=== PATIENT | female | born 1995 | race Caucasian/White ===

== ENCOUNTER 2017-07-04 11:05 | Emergency (ER) | payer MEDICAID ==
[~2017-07-04] VITALS: Ht 165.1 cm; Wt 68.2 kg
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
[2017-07-04 11:17] VITALS: Ht 165.1 cm; Wt 68.2 kg
== END 2017-07-04 11:20 | disposition home or self-care (01) ==
LOC: E/R 11:05
DX: O9A.212 Injury, poisoning and certain other consequences of external causes complicating pregnancy, second trimester (principal); S39.91XA Unspecified injury of abdomen, initial encounter; V49.40XA Driver injured in collision with unspecified motor vehicles in traffic accident, initial encounter; Z3A.00 Weeks of gestation of pregnancy not specified
CPT/HCPCS: 99282

== ENCOUNTER 2017-07-04 12:02 | Outpatient (CLI) | payer MEDICAID ==
[~2017-07-04] VITALS: Ht 160 cm; Wt 72.0 kg
[2017-07-04 12:21] VITALS: BP 102/64; PULSE 80; RESP 18; Ht 160 cm; Wt 72.0 kg
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
--- NOTE | 2017-07-04 15:17 | RADRPT ---
PROCEDURE: US OB. CLINICAL INDICATION: Size and dates TECHNIQUE: Multiple sonographic images of the pelvis and gravid uterus were obtained. The images were reviewed on a PACS workstation. COMPARISON: 07/04/2017 FINDINGS: There is a single viable intrauterine gestation. Cardiac activity is present with 115 beats per min [place]. There is a vertex presentation. The placenta is anterior. There is no evidence for an abruption or placenta previa. MVP = 4.3 cm. Measurements were made in order to determine age. The results are as follows: BPD =4.4 cm HC =16.9 cm AC =13.8 cm FL =3.1 cm Estimated gestational age of approximately 19 weeks and 3 days based on ultrasound measurements. The estimated date of delivery is 11/25/2017, based on ultrasound measurements. The EFW = 286 g RPTAT: AA IMPRESSION: Single viable intrauterine gestation of approximately 19 weeks and 3 days based on ultrasound measu rements. .Lorenzo Billy MD, MD Date Time Electronically viewed and signed by .Lorenzo Billy MD, on 07/04/2017 15:17 .S/
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
== END 2017-07-04 16:00 | disposition home or self-care (01) ==
LOC: OBT 12:02 → L-D 12:09 → OBT 16:00
PROVIDERS: ATTEND Obstetrics & Gynecology
DX: O9A.212 Injury, poisoning and certain other consequences of external causes complicating pregnancy, second trimester (principal); Z3A.19 19 weeks gestation of pregnancy; V43.52XA Car driver injured in collision with other type car in traffic accident, initial encounter; Y92.410 Unspecified street and highway as the place of occurrence of the external cause
CPT/HCPCS: 76805; 76815; Z7500; G0463

== ENCOUNTER 2017-11-08 08:43 | Inpatient (IN) | payer MEDICAID ==
[~2017-11-08] VITALS: Ht 160 cm; Wt 86.0 kg
[2017-11-08 08:48] VITALS: Ht 160 cm; Wt 86.0 kg
--- NOTE | 2017-11-08 09:23 | TRIAGE ---
OB Triage Datetime Report Generated by CPN: 11/08/2017 09:22 Datetime: 11/08/2017 09:16 Maternal Assessment Level of Consciousness: Fully Conscious DTR's/Clonus: DTRs 1+ Headache: Denies Blurred Vision: No Respiratory Effort: Unlabored Breath Sounds, Left: Clear and Equal Breath Sounds, Right: Clear and Equal Nausea/Vomiting: Denies RUQ Epigastric Pain: Denies Facial Edema: None Labor Evaluation Frequency: OCC Monitor Mode: External Duration (sec)2399: 40 Resting Tone [place]: Relaxed Heart Rate FHR Baseline Rate: 140 Monitor Mode: External US Variability: Moderate 6-25 bpm Accelerations: 15X15 Decelerations: None Category: Category I Pain Assessment Pain Scale: 5 Pain Presence: Intermittent Pain Type: Contraction Pain Location: Back Pain Goal: 3 Pain Relief Measures: Pain Medication Given Membrane Status: Ruptured Datetime: 11/08/2017 09:03 Stage of : OB Triage Datetime: 11/08/2017 08:54 Vaginal Exam Dilatation (cms): 1.0 Effacement (%): 50 Station: -3 Exam By: ESTRELLA MCCARTNEY Vaginal Bleeding: None Cervix, Consistency: Soft Cervix, Position: Posterior Presentation 'A': Cephalic Datetime: 11/08/2017 08:46 Assessment Type: Triage EGA: 37.6 Maternal Assessment Level of Consciousness: Fully Conscious DTR's/Clonus: DTRs 2+; No Clonus Headache: Denies Blurred Vision: No Respiratory Effort: Unlabored; Regular Rhythm; Equal Expansion Breath Sounds, Left: Clear and Equal Breath Sounds, Right: Clear and Equal Nausea/Vomiting: Denies RUQ Epigastric Pain: Denies Lower Extremities Edema: None Degree: None Upper Extremities Edema: None Degree: None Facial Edema: None Fall Risk Assessment History of Falling: (0) No Secondary Diagnosis: (0) No Ambulatory Aid: (0) Bedrest/Nurse Assist IV Therapy: (0) No Gait: (0) Normal/Bedrest/Immobile Mental Status: (0) Oriented to Own Ability Fall Score: 0 Fall Risk Score Definition: No Risk: No action required Datetime: 11/08/2017 08:40 Time of Arrival: 11/08/2017 08:40 Arrived By: Ambulatory Arrived From: Home Chief Complaint: PT CAME IN C/O LEAKING FLUID SINCE 0300 THIS MORNING Movement: Present Contractions: Denies/Absent Rupture of Membranes: Denies Vaginal Discharge: Denies Recent Sexual Intercouse: Denies Abdominal Trauma: Not Applicable Additional Patient Complaints: NONE Time Provider Notified: 11/08/2017 09:03 Provider Notified: FITO/EVON Initial Plan: MONITOR,. ROM PLUS AND VE
--- NOTE | 2017-11-08 10:02 | RADRPT ---
PROCEDURE: OB ultrasound limited for biophysical profile . CLINICAL INDICATION: Spontaneous rupture of membranes TECHNIQUE: Multiple sonographic images of the pelvis were obtained. Transabdominal view of the gr avid uterus are available for review. The images were reviewed on a PACS workstation. COMPARISON: 07/04/2017 FINDINGS: breathing movement = 2/2 tone = 2/2 motion = 2/2 Amniotic fluid volume = 0/2 OTTONIEL = 2.3 cm consistent with oligohydramnios. Cephalic presentation. Heart rate 122 beats per minute. Anterior grade II placenta. IMPRESSION: 1. Single viable intrauterine gestation. 2. Biophysical profile = 8 3. OTTONIEL = 2.3 cm consistent with oligohydramnios.. RPTAT: QQ .Yvan Paulino MD, Date Time Electronically viewed and signed by .Yvan Paulino MD, on 11/08/2017 10:01 .Monster/
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
[2017-11-08] MEDS ORDERED: BUTORPHANOL 2 MG INJ IV PRN (11:30)
[2017-11-08] MEDS ORDERED: OXYTOCIN 30 UNITS/LR 500 ML IV SCH ×3 (11:30→12:00)
[2017-11-08] MEDS ORDERED: LIDOCAINE 1% (MPF) 30 ML INJ INJ PRN (11:30)
[2017-11-08] MEDS ORDERED: MISOPROSTOL 200 MCG TAB PR PRN (11:30)
[2017-11-08] MEDS ORDERED: CARBOPROST 250 MCG INJ IM PRN (11:30)
[2017-11-08] MEDS ORDERED: AMPICILLIN 2 GM/NS (PMX) 100 ML IV ONE (11:30)
[2017-11-08] MEDS ORDERED: OXYTOCIN 30 UNITS/LR 500 ML IV PRN (11:30)
[2017-11-08] MEDS ORDERED: METHYLERGONOVINE 0.2 MG INJ IM PRN (11:30)
[2017-11-08] MEDS ORDERED: AMPICILLIN 2 GM/NS (PMX) 100 ML ONE (11:31)
[2017-11-08 12:09] LABS: BASOPHILS % 0.4 % (0.0-2.0); EOSINOPHILS % 9.2 % (0.0-7.0); HEMATOCRIT 33.5 % (37.0-47.0); HEMOGLOBIN 10.8 g/dl (12.0-16.0); LYMPHOCYTES # 2.3 10^3/ul (0.8-2.9); LYMPHOCYTES % 21.4 % (18.0-55.0); MEAN CORPUSCULAR HEMOGLOBIN 24.3 pg (29.0-33.0); MEAN CORPUSCULAR HGB CONC 32.2 g/dl (32.0-37.0); MEAN CORPUSCULAR VOLUME 75.5 fl (72.0-104.0); MEAN PLATELET VOLUME 10.1 fl (7.4-10.4); MONOCYTE # 0.7 10^3/ul (0.3-0.9); MONOCYTES % 6.9 % (0.0-13.0); NEUTROPHIL # 6.5 10^3/ul (1.6-7.5); NEUTROPHILS % 61.1 % (30.0-74.0); PLATELET COUNT 284 10^3/UL (140-415); RED BLOOD COUNT 4.44 10^6/ul (4.20-5.40); RED CELL DISTRIBUTION WIDTH 14.3 % (11.5-14.5); WHITE BLOOD COUNT 10.6 10^3/ul (4.8-10.8)
[2017-11-08 12:20] LABS: INR 0.9; PROTIME 12.2 Sec (11.9-14.9)
[2017-11-08 12:21] LABS: PARTIAL THROMBOPLASTIN TIME 28.6 Sec (25.0-35.0)
--- NOTE | 2017-11-08 12:38 | CONS ---
Date/Time of Note Date/Time of Note DATE: 11/08/17 TIME: 12:22 Consultation Date/Type/Reason Admit Date/Time Nov 08, 2017 at 09:03 OB triage consult This patient is a 22 years old 1 para 0, estimated date of confinement of November 23, 2017 ,which makes her 37 weeks and 6 days now. She came to triage complaining of leakage of fluid vaginally. On examination, there was gross evidence of a rupture of membrane. Nitrazine test was positive ,pooling was noted . ROM plus done which came back positive. Patient was sent for estimated weight as well as biophysical profile,. She was admitted in the labor and delivery room for possible delivery. On reviewing her past history, she did not have any other major medical problems or surgical procedures. On examination she is a well-developed well-nourished somewhat overweight patient. Her ear nose throat appears to be normal . neck is normal no neck vein distention no thyromegaly Her abdomen is soft heart tone is normal The tracing is reactive with fairly good variability and occasional acceleration no decelerations. Her general vital signs are within normal limits, with blood pressure of 112/71 , pulse rate of 80, respiration 19, temperature 98.3,,. On pelvic examination ; the cervix was 1 cm, 50% effaced, -3 station and clear evidence of rupture membrane. Reason for Consultation Laboratory Tests Test 11/08/17 09:00 11/08/17 10:00 Membranes Rupture POSITIVE White Blood Count 10.610^3/ul Red Blood Count 4.4410^6/ul Hemoglobin 10.8g/dl Hematocrit 33.5% Mean Corpuscular Volume 75.5fl Mean Corpuscular Hemoglobin 24.3pg Mean Corpuscular Hemoglobin Concent 32.2g/dl Red Cell Distribution Width 14.3% Platelet Count 82739^3/UL Mean Platelet Volume 10.1fl Neutrophils % 61.1% Lymphocytes % 21.4% Monocytes % 6.9% Eosinophils % 9.2% Basophils % 0.4% Nucleated Red Blood Cells % 0.0/100WBC Neutrophils # 6.510^3/ul Lymphocytes # 2.310^3/ul Monocytes # 0.710^3/ul Eosinophils # 1.010^3/ul Basophils # 0.010^3/ul Nucleated Red Blood Cells # 0.010^3/ul Prothrombin Time 12.2Sec Prothrombin Time Ratio 1.0 INR International Normalized Ratio 0.90 Activated Partial Thromboplast Time 28.6Sec Current Medications Medications (Trade) Dose Ordered Sig/Jessie Route PRN Reason Start Time Stop Time Status Last Admin Dose Admin Lactated Ringer's 1,000 ml @ 125 mls/hr Q8H IV 11/08/17 11:30 Ampicillin 100 ml @ 100 mls/hr ONCE ONCE IV 11/08/17 11:30 11/08/17 12:29 Ampicillin (Ampicillin 1 Gm/ NS (Pmx)) 50 ml @ 100 mls/hr Q4H IV 11/08/17 13:30 Butorphanol Tartrate (Stadol) 2 mg Q2H PRN IV PAIN 11/08/17 11:30 Lidocaine 30 ml 30 ml ONCE PRN INJ EPISIOTOMY/TEARING 11/08/17 11:30 Oxytocin/Lactated Ringer's 500 ml @ 500 mls/hr ONCE POST IV 11/08/17 11:30 Oxytocin/Lactated Ringer's 500 ml @ 125 mls/hr POST IV 11/08/17 11:30 Oxytocin/Lactated Ringer's 500 ml @ 0 mls/hr ONCE PRN IV For Hemorrhage Management 11/08/17 11:30 Methylergonovine Maleate (Methergine) 0.2 mg ONCE PRN IM VAGINAL BLEEDING 11/08/17 11:30 Carboprost Tromethamine (Hemabate) 250 mcg ONCE PRN IM VAGINAL BLEEDING 11/08/17 11:30 Misoprostol 1000 mcg 1,000 mcg ONCE PRN MI VAGINAL BLEEDING 11/08/17 11:30 Ampicillin 100 ml @ ud STK-MED ONCE .ROUTE 11/08/17 11:31 11/08/17 11:32 DC Oxytocin/Lactated Ringer's 500 ml @ 0 mls/hr Q0M IV 11/08/17 12:00 Constitutional: No chills, No diaphoresis, No disoriented, No febrile, No improved, No no complaints, No other, No poor po, No requiring IVF, No requiring O2 Eyes: No discharge, No no complaints, No other, No pain, No redness, No visual change ENT: No bleeding, No congestion, No discharge, No dysphagia, No no complaints, No other, No pain, No sore throat Respiratory: No cough, No no complaints, No other, No pain, No pleuritic pain, No shortness of breath, No sputum, No wheezing Cardiovascular: No chest pain, No edema, No lightheadedness, No no complaints, No orthopenea, No other, No palpitations, No paroxysmal nocturnal dyspnea Gastrointestinal: No blood, No constipation, No decreased appetite, No diarrhea , No flatus, No nausea, No no complaints, No other, No pain, No passing stool, No vomiting Genitourinary: other (On pelvic examination as I mentioned the cervix was about 1 fingertip 50% and -2 station with ruptured membranes), No bleeding, No discharge, No dysuria, No flank pain, No hematuria, No no complaints Skin: No bruising, No erythema, No laceration, No no complaints, No other, No pruritis, No rash, No skin lesions Neurologic: No confusion, No dizziness, No focal-weakness, No headache, No no complaints, No other, No seizure, No syncope Endocrine: No dry skin, No no complaints, No other, No polydypsia, No polyuria , No temp intolerance Additional Comments . .As I mentioned her ROM plus was positive on ultrasound study, estimated weight was 2731 g, which coincided 35 and half weeks . the biophysical profile was 6/8 with amniotic fluid index of 2.[address] Lopez was notified of the condition the patient and she was admitted in the labor and delivery. Social History Smoking Status: Never smoker Exam/Review of Systems Vital Signs Vitals Vital Signs Date Time Temp Pulse Resp B/P Pulse Ox O2 Delivery O2 Flow Rate FiO2 11/08/17 08:49 98.6 99 Room Air Results Result Diagram: 11/08/17 1000 Results 24 hrs Laboratory Tests Test 11/08/17 09:00 11/08/17 10:00 Membranes Rupture POSITIVE H White Blood Count 10.6 Red Blood Count 4.44 Hemoglobin 10.8 L Hematocrit 33.5 L Mean Corpuscular Volume 75.5 Mean Corpuscular Hemoglobin 24.3 L Mean Corpuscular Hemoglobin Concent 32.2 Red Cell Distribution Width 14.3 Platelet Count 284 Mean Platelet Volume 10.1 Neutrophils % 61.1 Lymphocytes % 21.4 Monocytes % 6.9 Eosinophils % 9.2 H Basophils % 0.4 Nucleated Red Blood Cells % 0.0 Neutrophils # 6.5 Lymphocytes # 2.3 Monocytes # 0.7 Eosinophils # 1.0 H Basophils # 0.0 Nucleated Red Blood Cells # 0.0 Prothrombin Time 12.2 Prothrombin Time Ratio 1.0 INR International Normalized Ratio 0.90 Activated Partial Thromboplast Time 28.6 Medications Medications Current Medications Lactated Ringer's 1,000 ml @ 125 mls/hr Q8H IV ; Start 11/08/17 at 11:30 Ampicillin 100 ml @ 100 mls/hr ONCE ONCE IV ; Start 11/08/17 at 11:30; Stop 11/08/17 at 12:29 Ampicillin (Ampicillin 1 Gm/ NS (Pmx)) 50 ml @ 100 mls/hr Q4H IV ; Start 11/08 at 13:30 Butorphanol Tartrate (Stadol) 2 mg Q2H PRN IV PAIN; Start 11/08/17 at 11:30 Lidocaine 30 ml 30 ml ONCE PRN INJ EPISIOTOMY/TEARING; Start 11/08/17 at 11:30 Oxytocin/Lactated Ringer's 500 ml @ 0 mls/hr ONCE PRN IV For Hemorrhage Management; Start 11/08/17 at 11:30 Methylergonovine Maleate (Methergine) 0.2 mg ONCE PRN IM VAGINAL BLEEDING; Start 11/08/17 at 11:30 Carboprost Tromethamine (Hemabate) 250 mcg ONCE PRN IM VAGINAL BLEEDING; Start 11/08/17 at 11:30 Misoprostol 1000 mcg 1,000 mcg ONCE PRN MI VAGINAL BLEEDING; Start 11/08/17 at 11:30 Oxytocin/Lactated Ringer's 500 ml @ 0 mls/hr Q0M IV ; Start 11/08/17 at 12:00 MESFIN BARNARD MD Nov 08, 2017 12:38
[2017-11-08] MEDS: LACTATED RINGER'S 1,000 ML IV SCH ×3 (13:15→21:11)
--- NOTE | 2017-11-08 13:54 | HP ---
Date/Time of Note Date/Time of Note DATE: 11/08/17 TIME: 13:49 OB - History Hx of Present Free Text/Dictation Admitted at 37 weeks and 6 days with complaint of spontaneous rupture of membrane at 3:30 AM Estimated Due Date: Nov 23, 2017 : 1 Para: 0 Care: Limited Care Ultrasounds: Other (Not available) Obstetrical Complications: None Medical Complications: None Past Family/Social History * Past Medical, Surgical, Family and Obstetric Histories reviewed from chart. Blood Type: B+ Rubella: unknown RPR/VDRL: Unknown GBS Status: Unknown HBsAG: Negative OB Admission Exam Vital Signs Vital Signs Vital Signs Date Time Temp Pulse Resp B/P Pulse Ox O2 Delivery O2 Flow Rate FiO2 11/08/17 08:49 98.6 99 Room Air Physical Exam HEENT: WNL Heart: Rhythm Normal Lungs: Clear, Equal Abdomen: WNL Extremities: Normal Reflexes: Normal Cervical Dilatation: 1cm Effacement: 50% Station: -2 Membranes: Ruptured Amniotic Fluid: Clear Heart Rate: 140's Accelerations: Accelerations Present Decelerations: No Decelerations Varibility: Moderate Contractions on Admission: >10 Minutes Apart Date/Time Contractions Began: November 08, 2017, at 3:30 AM Frequency of Contractions: Infrequent Duration: Unknown Intensity: Mild Last 72 hours Lab Results CBC & BMP 11/08/17 10:00 OB Assessment/Plan Other Assessment: Spontaneous rupture of membrane at 37 weeks and 6 days by dates Ultrasound does not confirm gestational age Specific test for amniotic membrane ruptured is positive Report of ultrasound is as follows: Single viable intrauterine gestation of approximately 35 weeks 1 day. The estimated date of delivery is 12/12/2017. The estimated weight is 2731 g plus/minus 409 g. Marked oligohydramnios. The amniotic fluid index is 2.3 cm. Other plan: Maintenance for labor augmentation CARLOS ALBERTO LUJAN MD Nov 08, 2017 13:54
[2017-11-08] MEDS: AMPICILLIN 1 GM/NS (PMX) 50 ML IV SCH ×3 (14:35→21:45)
[2017-11-08] MEDS ORDERED: FENTAnyl 2MCG/ML-ROPIV 0.2% 100 ML ONE (17:07)
[2017-11-08] MEDS ORDERED: FENTAnyl 2MCG/ML-ROPIV 0.2% 100 ML BAG EPI SCH (18:00)
[2017-11-08] MEDS ORDERED: ONDANSETRON 4 MG INJ IV PRN (18:00)
[2017-11-08] MEDS ORDERED: DIPHENHYDRAMINE 50 MG INJ IV PRN (18:00)
[2017-11-08] MEDS ORDERED: NALOXONE (0.4 MG/ML) INJ IV PRN (18:00)
[2017-11-08 19:04] LABS: BARBITURATES Negative (NEGATIVE); BENZODIAZEPINES Negative (NEGATIVE); CANNABINOIDS Negative (NEGATIVE); COCAINE Negative (NEGATIVE); OPIATES Negative (NEGATIVE)
[2017-11-08] MEDS ORDERED: ACETAMINOPHEN 325 MG TAB ONE (21:29)
[2017-11-08] MEDS ORDERED: ACETAMINOPHEN 650 MG SUPP PR ONE (21:29)
[2017-11-08] MEDS ORDERED: ACETAMINOPHEN 325 MG TAB PO PRN (21:30)
[2017-11-09] MEDS: AMPICILLIN 1 GM/NS (PMX) 50 ML IV SCH (02:08)
[2017-11-09] MEDS ORDERED: OXYTOCIN 30 UNITS/LR 500 ML IV SCH (05:47)
[2017-11-09] MEDS ORDERED: LACTATED RINGER'S 1,000 ML IV* SCH (05:47)
--- NOTE | 2017-11-09 05:51 | LDN ---
Date/Time of Note Date/Time of Note DATE: 11/09/17 TIME: 05:49 Delivery Summary of a viable baby girl weighing 2515 grams, or 5# 9 oz, 18" long, and with Apgars of 9/9. Weeks of Gestation 38w Placenta Delivered: Spontaneously Meconium: none Episiotomy: No Perineal laceration: 0 Laceration repair: B/l labial lacerations only with the left> right. Anesthesia type: None (150) Sponge & Needle done & correct: Yes All needle counts correct: Yes Any foreign bodies felt in the: No (vagina) Problems: Infant Delivery Information Sex Infant Sex: female Apgars 1 Minute: 9 5 Minute: 9 Suctioning Nose & mouth suctioned at [place]: Yes Delee suction performed: No Umbilical Cord Umbilical cord with: 3 Vessels Cord presentations: no nuchal cord Cord Blood was obtained: Yes Mother & Baby Disposition Disposition Mom & Baby to Maternity; Good: Yes Baby to NICU: No KEILY TENORIO MD Nov 09, 2017 05:51
[2017-11-09] MEDS ORDERED: OXYTOCIN 30 UNITS/LR 500 ML IV PRN (06:00)
[2017-11-09] MEDS ORDERED: CARBOPROST 250 MCG INJ IM PRN (06:00)
[2017-11-09] MEDS ORDERED: METHYLERGONOVINE 0.2 MG INJ IM PRN (06:00)
[2017-11-09] MEDS ORDERED: MISOPROSTOL 200 MCG TAB PR PRN (06:00)
[2017-11-09] MEDS ORDERED: LANOLIN 7 GM TUBE TOP PRN (06:00)
[2017-11-09] MEDS ORDERED: BENZOCAINE 20% 56 ML SPRAY TOP PRN (06:00)
[2017-11-09] MEDS ORDERED: HYDROCODONE/APAP (5/325) TAB PO PRN (06:00)
[2017-11-09 08:45] VITALS: BP 119/83; PULSE 82; RESP 18
[2017-11-09] MEDS: IBUPROFEN 600 MG TAB PO SCH ×3 (09:02→17:29)
[2017-11-09 09:45] VITALS: BP 119/57; PULSE 92; RESP 16
[2017-11-09 12:30] VITALS: BP 109/56; PULSE 80; RESP 16
[2017-11-09 16:00] VITALS: BP 115/73; PULSE 92; RESP 17
[2017-11-09 19:40] VITALS: BP 96/55; PULSE 88; RESP 18
[2017-11-10 00:15] VITALS: BP 98/61; PULSE 72; RESP 18
[2017-11-10] MEDS: IBUPROFEN 600 MG TAB PO SCH ×4 (00:17→17:30)
[2017-11-10 08:20] VITALS: BP 106/55; PULSE 85; RESP 20
[2017-11-10 10:29] LABS: BASOPHILS % 0.1 % (0.0-2.0); EOSINOPHILS # 0.7 10^3/ul (0.0-0.5); EOSINOPHILS % 5.1 % (0.0-7.0); HEMATOCRIT 29.8 % (37.0-47.0); HEMOGLOBIN 9.4 g/dl (12.0-16.0); LYMPHOCYTES # 2.8 10^3/ul (0.8-2.9); LYMPHOCYTES % 21.1 % (18.0-55.0); MEAN CORPUSCULAR HEMOGLOBIN 24.5 pg (29.0-33.0); MEAN CORPUSCULAR HGB CONC 31.5 g/dl (32.0-37.0); MEAN CORPUSCULAR VOLUME 77.6 fl (72.0-104.0); MEAN PLATELET VOLUME 10.4 fl (7.4-10.4); MONOCYTE # 0.7 10^3/ul (0.3-0.9); MONOCYTES % 5.1 % (0.0-13.0); NEUTROPHILS % 67.3 % (30.0-74.0); PLATELET COUNT 240 10^3/UL (140-415); RED BLOOD COUNT 3.84 10^6/ul (4.20-5.40); RED CELL DISTRIBUTION WIDTH 14.6 % (11.5-14.5); WHITE BLOOD COUNT 13.4 10^3/ul (4.8-10.8)
[2017-11-10 16:00] VITALS: BP 100/59; RESP 18
--- NOTE | 2017-11-10 18:49 | DS ---
Date/Time of Note Date/Time of Note Home next day DATE: 11/10/17 TIME: 18:48 Obstetrical Discharge Record Final Diagnosis Final Diagnosis: Term delivered Other Final Diagnosis Status post vaginal delivery Vaginal Delivery Obstetrical Delivery: Spontaneous, Laceration, Repaired Complications Augmentation: Yes Condition on Discharge Physical Assessment Last Vitals: See nurse's notes Voiding: Yes Bowel Movement: Yes Breast: Soft, non-tender, Filling Fundus: Firm Abdomen and Incision: Abdomen is soft and not distended bowel sounds present Fundus is firm at the U Episiotomy: Not applicable Calf Tenderness: No Patient Condition: Good CARLOS ALBERTO LUJAN MD Nov 10, 2017 18:49
--- NOTE | 2017-11-10 18:49 | PD.PPDC ---
[employer]E [employer] Discharge Instruction Provider Information Physician Information 22-year-old female had vaginal delivery at 37+ weeks Diagnosis Final Diagnosis: Status post vaginal delivery Condition Patient Condition: Good Diet Diet: Resume Regular Diet Activity/Restrictions Activity: Normal Activity May Shower Restrictions: Nothing in the Vagina Return to Work or School: Dec 28, 2017 Follow-up Follow-up with Physician: 4, Week/Weeks (In clinic) Return to clinic for OB Instructions: Breast Tenderness Depression Comment: Pelvic rest for 6 weeks CARLOS ALBERTO LUJAN MD Nov 10, 2017 18:49
[2017-11-10] MEDS ORDERED: IBUP-1542 PO (18:50)
[2017-11-10 20:05] VITALS: BP 107/76; PULSE 94; RESP 18
[2017-11-11] MEDS: IBUPROFEN 600 MG TAB PO SCH ×3 (00:09→12:19)
[2017-11-11 04:15] VITALS: BP 119/69; PULSE 88; RESP 18
[2017-11-11 07:50] VITALS: BP 108/59; PULSE 89; RESP 19
[2017-11-11] MEDS ORDERED: DIPHTH/TET/ACEL PERTUSS (ADULT) 0.5 ML VIAL IM* ONE (09:00)
== END 2017-11-11 15:17 | disposition home or self-care (01) | DRG 775 ==
LOC: OBT 08:43 → L-D 08:44 → OBT 09:14 → PP1 11-09 08:31
PROVIDERS: ADMIT Obstetrics & Gynecology; ATTEND Obstetrics & Gynecology
PROC: 4A1HXCZ Monitoring of Products of Conception, Cardiac Rate, External Approach (ICD-10-PCS; 2017-11-08)
PROC: 10E0XZZ Delivery of Products of Conception, External Approach (ICD-10-PCS; principal; 2017-11-09)
PROC: 0UQMXZZ Repair Vulva, External Approach (ICD-10-PCS; 2017-11-09)
DX: O41.03X0 Oligohydramnios, third trimester, not applicable or unspecified (principal); O70.0 First degree perineal laceration during delivery; Z37.0 Single live birth; Z3A.38 38 weeks gestation of pregnancy
CPT/HCPCS: 62319; 76815; 76818; 80307; 84112; 85025; 85610; 85730; 86592; 86900; 86901; 87340; 90715; 99464; G0463; J0290; J2405; J2590; J3010; J7120

== ENCOUNTER 2018-02-14 18:05 | Emergency (ER) | END 2018-02-14 21:40 | disposition home or self-care (01) ==

== ENCOUNTER 2018-06-17 09:14 | Inpatient (IN) | END 2018-06-19 17:24 | disposition home or self-care (01) | DRG 419 ==

== ENCOUNTER 2019-02-19 20:38 | Emergency (ER) | payer SELFPAY ==
[~2019-02-19] VITALS: Ht 160 cm; Wt 72.2 kg
[~2019-02-19 20:38] MED LIST: DOCU-144 PO; HYDR-3601 PO
[2019-02-19 20:44] VITALS: Ht 160 cm; Wt 72.2 kg
[2019-02-20] MEDS ORDERED: ONDANSETRON (ODT) 4 MG TAB ODT STA (00:43)
[2019-02-20] MEDS ORDERED: FAMOTIDINE 20 MG TAB PO ONE (01:00)
[2019-02-20] MEDS ORDERED: LIDOCAINE/MYLANTA 40 ML BTL PO ONE (01:00)
[2019-02-20] MEDS ORDERED: KETOROLAC 30 MG INJ IM STA (02:57)
[2019-02-20] MEDS ORDERED: IBUP-1542 PO (02:59)
[2019-02-20] MEDS ORDERED: TRAM50TA2 PO (02:59)
[2019-02-20] MEDS ORDERED: traMADol 50 MG TAB PO ONE (03:00)
[2019-02-20 03:13] VITALS: BP 113/71; PULSE 60; RESP 18
--- NOTE | 2019-02-20 20:57 | ERD ---
ER Documentation Chief Complaint Chief Complaint Epigastric pain, N/V X 3 days HPI History of Present Illness: Patient coming in with today of epigastric pain and nausea for 3 days. Patient denies vomiting, severe abdominal pain, diarrhea, fever, chills, decreased appetite. Past medical history includes jonathan. At home pharmacological/nonpharmacological treatment for symptoms: denies Denies social concerns; Denies recent foreign travel ROS All systems reviewed and are negative except as per history of present illness. Medications Home Meds Active Scripts Tramadol HCl (Tramadol HCl) 50 Mg Tablet, 50 MG PO Q8 PRN for PAIN, #8 TAB Prov:ELSY HALEY V [employer] 02/20/19 Ibuprofen* (Motrin*) 600 Mg Tab, 600 MG PO Q6H PRN for PAIN, #30 TAB Prov:ELSY HALEY V [employer] 02/20/19 Docusate Sodium* (Colace*) 100 Mg Capsule, 100 MG PO BID, #20 CAP Prov:KENIA BOYLE [employer] 06/19/18 Hydrocodone Bit-Acetaminophen (Hydrocodone Bit-APAP) 5-325MG Tablet, 1 TAB PO Q6H PRN for MODERATE PAIN LEVEL 4-6, #14 TAB Prov:KENIA BOYLE [employer] 06/19/18 Allergies Allergies: Coded Allergies: No Known Allergy (Unverified , 06/17/18) PMhx/Soc History of Surgery: Yes Anesthesia Reaction: No Hx Neurological Disorder: No Hx Respiratory Disorders: No Hx Cardiac Disorders: No Hx Psychiatric Problems: No Hx Miscellaneous Medical Probl: No Hx Alcohol Use: No Hx Substance Use: No Hx Tobacco Use: No FmHx Family History: No diabetes, No coronary disease Physical Exam Vitals Vital Signs Date Temp Pulse Resp B/P (MAP) Pulse Ox O2 O2 Flow FiO2 Time Delivery Rate 02/20/19 98.4 60 18 113/71 99 Room Air 03:13 (85) 02/19/19 97.3 72 18 114/76 98 20:44 (89) Physical Exam Const: No acute distress, no grimacing Head: Atraumatic Eyes: Normal Conjunctiva ENT: Normal External Ears, Nose and Mouth. Neck: Full range of motion. No meningismus. Resp: Clear to auscultation bilaterally Cardio: Regular rate and rhythm, no murmurs Abd: Soft, non tender, non distended. Normal bowel sounds Skin: No petechiae or rashes Back: No midline or flank tenderness Ext: No cyanosis, or edema Neur: Awake and alert Psych: Normal Mood and Affect Results 24 hrs Laboratory Tests Test 02/20/19 00:55 02/20/19 00:56 Urine Color YELLOW Urine Clarity SLIGHTLY CLOUDY Urine pH 5.0 Urine Specific [place] 1.027 Urine Ketones TRACE mg/dL Urine Nitrite NEGATIVE mg/dL Urine Bilirubin NEGATIVE mg/dL Urine Urobilinogen NEGATIVE mg/dL Urine Leukocyte Esterase NEGATIVE Luis/ul Urine Microscopic RBC 2 /HPF Urine Microscopic WBC 5 /HPF Urine Squamous Epithelial Cells FEW /HPF Urine Mucus FEW /HPF Urine Hemoglobin NEGATIVE mg/dL Urine Glucose NEGATIVE mg/dL Urine Total Protein NEGATIVE mg/dl POC Beta HCG, Qualitative NEGATIVE Current Medications Medications Dose Sig/Jessie Start Time Status Last (Trade) Ordered Route PRN Stop Time Admin Dose Reason Admin 40 ml ONCE ONCE 02/20/19 DC 02/20/19 Miscellaneous PO 01:00 01:04 Medication 02/20/19 01:01 (Gi Cocktail (2)) Ondansetron 4 mg ONCE STAT 02/20/19 DC 02/20/19 HCl (Zofran ODT 00:43 01:01 Odt) 02/20/19 00:45 Famotidine 20 mg ONCE ONCE 02/20/19 DC 02/20/19 (Pepcid) PO 01:00 01:04 02/20/19 01:01 Tramadol 50 mg ONCE ONCE 02/20/19 DC 02/20/19 HCl PO 03:00 03:10 (Ultram) 02/20/19 03:01 Ketorolac 30 mg ONCE STAT 02/20/19 DC 02/20/19 Tromethamine IM 02:57 03:10 (Toradol) 02/20/19 02:58 Procedures/MDM ED course includes a thorough examination and history. Medications: GI cocktail, famotidine, Zofran Imaging: --- Labs: Urinalysis Low suspicion for life-threatening medical emergency. Low suspicion for gastrointestinal emergency requires hospitalization/immediate intervention. Patient with mild decrease in pain after initial medication ministration, will order tramadol and Toradol before discharge. Otherwise healthy patient presenting with constellation of symptoms likely representing nonspecific abdominal pain as characterized by history, physical exam findings, lab findings. Urinalysis negative for infection. Patient hemodynamically stable, a febrile, no physical signs of pain. Urine negative. No respiratory distress, otherwise relatively well appearing and nontoxic. Patient educated on diagnoses, prescriptions, follow-up care, return precautions. Strict return precautions given for worsening condition; questions answered discharge. Disposition for discharge with followup in 2 days with PCP/clinic. Departure Diagnosis: Primary Impression: Abdominal pain Abdominal location: epigastric Qualified Codes: R10.13 - Epigastric pain Condition: Stable Patient Instructions: Abdominal Pain Referrals: [facility] YOU HAVE RECEIVED A MEDICAL SCREENING EXAM AND THE RESULTS INDICATE THAT YOU DO NOT HAVE A CONDITION THAT REQUIRES URGENT TREATMENT IN THE EMERGENCY DEPARTMENT. FURTHER EVALUATION AND TREATMENT OF YOUR CONDITION CAN WAIT UNTIL YOU ARE SEEN IN YOUR DOCTORS OFFICE WITHIN THE NEXT 1-2 DAYS. IT IS YOUR RESPONSIBILITY TO MAKE AN APPOINTMENT FOR FOLOW-UP CARE. IF YOU HAVE A PRIMARY DOCTOR --you should call your primary doctor and schedule an appointment IF YOU DO NOT HAVE A PRIMARY DOCTOR YOU CAN CALL OUR PHYSICIAN REFERRAL HOTLINE AT IF YOU CAN NOT AFFORD TO SEE A PHYSICIAN YOU CAN CHOSE FROM THE FOLLOWING [facility] [address] [facility]. [facility] [address] [employer] [facility]. [facility] [address] [facility] [facility] [address] [facility]. [facility] [address] [facility]. [facility]. [address] [facility]. [facility] YOU HAVE RECEIVED A MEDICAL SCREENING EXAM AND THE RESULTS INDICATE THAT YOU DO NOT HAVE A CONDITION THAT REQUIRES URGENT TREATMENT IN THE EMERGENCY DEPARTMENT. FURTHER EVALUATION AND TREATMENT OF YOUR CONDITION CAN WAIT UNTIL YOU ARE SEEN IN YOUR DOCTORS OFFICE WITHIN THE NEXT 1-2 DAYS. IT IS YOUR RESPONSIBILITY TO MAKE AN APPOINTMENT FOR FOLOW-UP CARE. IF YOU HAVE A PRIMARY DOCTOR --you should call your primary doctor and schedule and appointment IF YOU DO NOT HAVE A PRIMARY DOCTOR YOU CAN CALL OUR PHYSICIAN REFERRAL HOTLINE AT . IF YOU CAN NOT AFFORD TO SEE A PHYSICIAN YOU CAN CHOSE FROM THE FOLLOWING [facility]: [facility] [address] [place] [address] [facility] [address] [place] [address] [facility] [address] [place] [address] Additional Instructions: Thank you very much for allowing us to participate in your care. Your health and safety is our top priority at [facility]. It is important to read all discharge instructions and education provided in your discharge packet. Your urinalysis did not show any signs of infection. He did not have any fever. There is no concern for infectious cause of your abdominal pain. But is important to follow-up with your primary care doctor/clinic for reevaluation of symptoms. Call your primary care doctor TOMORROW for an appointment during the next 2-3 days and bring all the information and medications prescribed. Have prescriptions filled and follow precisely the directions on the label. Ibuprofen is for mild to moderate pain, and tramadol for moderate to severe pain. If the symptoms get worse and your provider is unavailable, return to the E mergency Department immediately. If you develop severe pain that worsens, or vomiting, fever; return to emergency room. ELSY HALEY NP Feb 20, 2019 20:57
== END 2019-02-20 03:17 | disposition home or self-care (01) ==
LOC: FTE 20:38
DX: R10.13 Epigastric pain (principal)
CPT/HCPCS: 81001; 81003; 81025; J1885; Z7610; 96372